=== PATIENT | female | born 1940 | race Caucasian/White ===

== ENCOUNTER 2022-11-02 15:19 | Outpatient (CLI) | payer MEDICARE | END 2022-11-02 15:20 | disposition home or self-care (01) | LOC: BICCT 15:19 | PROVIDERS: ATTEND Family Medicine | DX: Z12.2 Encounter for screening for malignant neoplasm of respiratory organs (principal); F17.210 Nicotine dependence, cigarettes, uncomplicated | CPT/HCPCS: 71271 ==

== ENCOUNTER 2023-02-03 11:00 | Outpatient (CLI) | payer MEDICARE | END 2023-02-03 11:01 | disposition home or self-care (01) | LOC: PET 11:00 | PROVIDERS: ATTEND Internal Medicine | DX: R91.8 Other nonspecific abnormal finding of lung field (principal); N63.20 Unspecified lump in the left breast, unspecified quadrant | CPT/HCPCS: 78815; A9552 ==